=== PATIENT | male | born 1975 | race Caucasian/White ===

== ENCOUNTER 2019-01-17 07:57 | Emergency (ER) | payer OTHER ==
[~2019-01-17] VITALS: Ht 165.1 cm; Wt 64.8 kg
[~2019-01-17 07:57] MED LIST: AMIO200T PO; AMIO200T4 PO; ASPI-650 PO; CALC667C4; DIGO125T PO; LISI-313 PO; LISI2.5T59 PO; WARF5TAB PO
[2019-01-17 08:10] VITALS: Ht 165.1 cm; Wt 64.8 kg
[2019-01-17 15:02] VITALS: BP 75/56; PULSE 82; RESP 16
== END 2019-01-17 15:04 | disposition home or self-care (01) ==
LOC: E/R 07:57
DX: T82.198A Other mechanical complication of other cardiac electronic device, initial encounter (principal); I95.9 Hypotension, unspecified; N18.6 End stage renal disease; D53.9 Nutritional anemia, unspecified; E87.6 Hypokalemia; D69.6 Thrombocytopenia, unspecified; I50.9 Heart failure, unspecified; I13.2 Hypertensive heart and chronic kidney disease with heart failure and with stage 5 chronic kidney disease, or end stage renal disease; Y71.2 Prosthetic and other implants, materials and accessory cardiovascular devices associated with adverse incidents; Z99.2 Dependence on renal dialysis; Z79.82 Long term (current) use of aspirin
CPT/HCPCS: 71045; 80048; 83880; 84484; 85025; 85610; 85730; 93005